=== PATIENT | male | born 1970 | race African-American/Black ===

== ENCOUNTER 2017-11-26 08:27 | Emergency (ER) | payer OTHER ==
[2017-11-26] MEDS ORDERED: Ketorolac Tromethamine 30 MG/ML VIAL ONE (09:07)
[2017-11-26 09:10] LABS: #Basophils 0.1 thou/uL (0.0-0.2); #Eosinphils 0.1 thou/uL (0.0-0.7); #Lymphocytes 1.9 thou/uL (1.20-3.40); #Monocytes 0.7 thou/uL (0.11-0.59); #Neutrophils 5.2 thou/uL (1.40-6.50); %Eosinophils 1.6 % (0.0-10.0); %Lymphocytes 23.9 % (21.0-51.0); %Monocytes 8.8 % (0.0-10.0); %Neutrophils 64.7 % (42.0-75.0); Hemoglobin 13.5 g/dL (14.0-18.0); Mean Corpuscular HGB CONC 32.1 g/dL (32.0-36.0); Mean Corpuscular Hemoglobin 25.8 pg (27.0-31.0); Mean Corpuscular Volume 80.3 fl (80.0-94.0); Mean Platelet Volume 7.7 fL (7.4-10.4); Platelet Count 227 thou/uL (130-400); RBC Distribution Width 11.9 % (11.5-14.5); Red Blood Cell (RBC) Count 5.23 mill/uL (4.70-6.10); White Blood Cell (WBC) Count 8.1 thou/uL (4.8-10.8)
--- NOTE | 2017-11-26 09:20 | RAD ---
TWO VIEWS CHEST: Date: 11-26-17 Comparison: 12-16-14 History: Flu-like symptoms for a couple of weeks, weakness. FINDINGS: There is no pneumothorax, pleural fluid, focal consolidation or alveolar edema. Heart and mediastinal contours are within normal limits. No acute osseous abnormality is noted. IMPRESSION: No acute findings. POS: [facility]
[2017-11-26 09:35] LABS: ALT (SGPT) 36 U/L (8-55); AST (SGOT) 25 U/L (5-34); Albumin 3.8 g/dL (3.5-5.0); Alkaline Phosphatase 76 U/L (40-150); Anion Gap 8 mmol/L (10-20); BUN (Urea Nitrogen) 13 mg/dL (8.9-20.6); Bilirubin, Total 0.7 mg/dL (0.2-1.2); Calc. Creatinine Clearance 0 mL/min (70-130); Calcium 10.5 mg/dL (7.8-10.44); Carbon Dioxide 30 mmol/L (22-29); Chloride 105 mmol/L (98-107); Estimated GFR-MDRD Greater than 90; Globulin 3.2 g/dL (2.4-3.5); Glucose 87 mg/dL (70-105); Potassium 4.6 mmol/L (3.5-5.1); Sodium 138 mmol/L (136-145)
== END 2017-11-26 11:39 | disposition home or self-care (01) ==
LOC: ERS 08:27
DX: R53.1 Weakness (principal); I10 Essential (primary) hypertension; F32.9 Major depressive disorder, single episode, unspecified
CPT/HCPCS: 36415; 71046; 80053; 85025; 86140; 93005; 96361; 96374; J1885

== ENCOUNTER 2018-04-16 16:31 | Outpatient (CLI) | payer OTHER | END 2018-04-16 16:32 | disposition home or self-care (01) | LOC: BICRAD 16:31 | PROVIDERS: ATTEND Emergency Medicine | DX: J18.9 Pneumonia, unspecified organism (principal); M25.561 Pain in right knee; M25.562 Pain in left knee; M17.0 Bilateral primary osteoarthritis of knee; M21.161 Varus deformity, not elsewhere classified, right knee; M25.461 Effusion, right knee | CPT/HCPCS: 71046 ==

== ENCOUNTER 2020-10-15 23:13 | Emergency (ER) | payer OTHER | END 2020-10-16 01:00 | disposition home or self-care (01) | LOC: ERS 23:13 | DX: K08.89 Other specified disorders of teeth and supporting structures (principal); I10 Essential (primary) hypertension | CPT/HCPCS: 99281 ==

== ENCOUNTER 2023-08-27 00:58 | Emergency (ER) | payer OTHER ==
[2023-08-27 01:48] LABS: Bacteria/HPF None Seen HPF (None Seen); Bilirubin Negative (Negative); Blood, Urine Negative (Negative); CAUTI Indications for Culture Alt mental st,lethar; Clarity Clear (Clear); Glucose, Urine (Dipstick) Normal (Negative); Ketone, Urine Negative (Negative); Leukocyte Negative Leu/uL (Negative); Nitrite Negative (Negative); Protein, Urine (Dipstick) Negative (Neg-Trace); RBC/HPF None Seen HPF (0-3); Specific Gravity, Urine 1.011 (1.002-1.036); Squamous Epithelial None Seen HPF (0-3); Urobilinogen Normal mg/dL (Less than 2); WBC/HPF 0-3 HPF (0-3); pH, Urine 6.5 (5.0-9.0)
[2023-08-27 01:54] LABS: #Basophils 0.1 thou/uL (0.0-0.2); #Eosinphils 0.1 thou/uL (0.0-0.7); #Monocytes 0.8 thou/uL (0.11-0.59); #Neutrophils 9.7 thou/uL (1.40-6.50); %Basophils 0.5 % (0.0-1.0); %Eosinophils 0.7 % (0.0-10.0); %Lymphocytes 16.5 % (21.0-51.0); %Neutrophils 75.5 % (42.0-75.0); Hematocrit 44.9 % (42.0-52.0); Hemoglobin 14.8 g/dL (14.0-18.0); Mean Platelet Volume 9.7 fL (7.4-10.4); Platelet Count 302 10x3/uL (130-400); RBC Distribution Width 12.8 % (11.5-14.5); Red Blood Cell (RBC) Count 5.28 mill/uL (4.70-6.10); White Blood Cell (WBC) Count 12.9 10x3/uL (4.8-10.8)
[2023-08-27 01:59] LABS: Urine Culture Reflex No No
[2023-08-27 02:19] LABS: ALT (SGPT) 16 U/L (8-55); AST (SGOT) 22 U/L (5-34); Albumin 4.5 g/dL (3.5-5.0); Alkaline Phosphatase 80 U/L (40-110); Anion Gap 16 mmol/L (10-20); BUN (Urea Nitrogen) 17 mg/dL (8.4-25.7); Bilirubin, Total 0.6 mg/dL (0.2-1.2); Calc. Creatinine Clearance 0 mL/min (70-130); Calcium 9.3 mg/dL (7.8-10.44); Carbon Dioxide 23 mmol/L (22-29); Chloride 104 mmol/L (98-107); Estimated GFR 48; Globulin 3.4 g/dL (2.4-3.5); Glucose 100 mg/dL (70-105); Potassium 4.3 mmol/L (3.5-5.1); Protein, Total 7.9 g/dL (6.0-8.3); Sodium 139 mmol/L (136-145)
== END 2023-08-27 03:04 | disposition home or self-care (01) ==
LOC: ERS 00:58
DX: R42 Dizziness and giddiness (principal); I10 Essential (primary) hypertension; Z79.899 Other long term (current) drug therapy
CPT/HCPCS: 36415; 80053; 81001; 85025; 93005

== ENCOUNTER 2023-11-06 14:34 | Observation (INO) | payer OTHER ==
[2023-11-06] MEDS ORDERED: hydrALAZINE 20 MG/ML VIAL ONE (15:00)
[2023-11-06] MEDS ORDERED: Acetaminophen 500 MG TAB ONE (15:00)
[2023-11-06] MEDS ORDERED: Amlodipine 5 MG TAB ONE (15:04)
[2023-11-06 15:14] LABS: #Eosinphils 0.1 thou/uL (0.0-0.7); #Monocytes 0.5 thou/uL (0.11-0.59); #Neutrophils 7.2 thou/uL (1.40-6.50); %Basophils 0.4 % (0.0-1.0); %Eosinophils 0.8 % (0.0-10.0); %Lymphocytes 20.4 % (21.0-51.0); %Monocytes 4.9 % (0.0-10.0); %Neutrophils 73.1 % (42.0-75.0); Hematocrit 43.6 % (42.0-52.0); Hemoglobin 14.2 g/dL (14.0-18.0); Mean Corpuscular HGB CONC 32.6 g/dL (32.0-36.0); Mean Platelet Volume 10.2 fL (7.4-10.4); Platelet Count 258 10x3/uL (130-400); RBC Distribution Width 12.6 % (11.5-14.5); Red Blood Cell (RBC) Count 5.07 mill/uL (4.70-6.10); White Blood Cell (WBC) Count 9.8 10x3/uL (4.8-10.8)
[2023-11-06 15:43] LABS: Troponin I 0.015 ng/mL (< 0.028)
[2023-11-06 15:45] LABS: ALT (SGPT) 12 U/L (8-55); AST (SGOT) 20 U/L (5-34); Albumin 3.9 g/dL (3.5-5.0); Alkaline Phosphatase 74 U/L (40-110); Anion Gap 13 mmol/L (10-20); BUN (Urea Nitrogen) 13 mg/dL (8.4-25.7); Bilirubin, Total 0.6 mg/dL (0.2-1.2); Calc. Creatinine Clearance 0 mL/min (70-130); Carbon Dioxide 22 mmol/L (22-29); Chloride 107 mmol/L (98-107); Estimated GFR 68; Globulin 3.4 g/dL (2.4-3.5); Glucose 92 mg/dL (70-105); Protein, Total 7.3 g/dL (6.0-8.3); Sodium 138 mmol/L (136-145)
[2023-11-06] MEDS ORDERED: Aspirin Chewable 81 MG TAB ONE (16:38)
[2023-11-06 19:06] LABS: Troponin I Less than 0.010 ng/mL (< 0.028)
[2023-11-06] MEDS ORDERED: Acetaminophen 325 MG TAB PO PRN (19:29)
[2023-11-06] MEDS ORDERED: Ondansetron ODT 4 MG TAB PO PRN (19:29)
[2023-11-06 21:23] LABS: Hemoglobin A1c 5.2 % (4.0-6.0)
[2023-11-06 22:32] LABS: Cardiac Risk 4.4 (Less than 4.5)
[2023-11-06 22:59] VITALS: BMI 30.5
[2023-11-07 05:00] VITALS: BP 158/94; TEMP 97.5
[2023-11-07] MEDS ORDERED: Amlodipine 10 MG TAB PO SCH (05:15)
[2023-11-07] MEDS ORDERED: Enoxaparin 40 MG (0.4 mL) SYRINGE SC SCH (09:00)
[2023-11-08] MEDS ORDERED: Amlodipine 10 MG TAB PO SCH (09:00)
== END 2023-11-07 05:32 | disposition home or self-care (01) ==
LOC: ERS 14:34 → 2SW 17:26
PROVIDERS: ADMIT Student in an Organized Health Care Education/Training Program; ATTEND Student in an Organized Health Care Education/Training Program
DX: I10 Essential (primary) hypertension (principal); R51.9 Headache, unspecified; Z79.899 Other long term (current) drug therapy; Z87.891 Personal history of nicotine dependence
CPT/HCPCS: 36415; 71045; 80053; 80061; 83036; 84443; 84484; 85025; 93005; 93010; 94760; G0378; J0360

== ENCOUNTER 2023-12-19 08:59 | Emergency (ER) | payer OTHER ==
[2023-12-19] MEDS ORDERED: Amlodipine 5 MG TAB ONE (09:46)
== END 2023-12-19 13:54 | disposition home or self-care (01) ==
LOC: ERS 08:59
DX: Z00.00 Encounter for general adult medical examination without abnormal findings (principal); I10 Essential (primary) hypertension; E78.5 Hyperlipidemia, unspecified; Z76.0 Encounter for issue of repeat prescription; Z79.899 Other long term (current) drug therapy
CPT/HCPCS: 99283